=== PATIENT | female | born 1960 | race Caucasian/White ===

== ENCOUNTER 2017-02-20 08:18 | Outpatient (CLI) | payer OTHER ==
[2017-02-20 08:48] LABS: BILIRUBIN,URINE NEGATIVE (NEGATIVE)
[2017-02-20 08:49] LABS: UA CHARGE (STRIP ONLY) YES; UR CULTURE IF IND NOT INDICATED
[2017-02-20 09:17] LABS: BASOPHILS # (AUTO) 0.1 10^3/uL (0.0-0.1); BASOPHILS % (AUTO) 1.3 %; EOSINOPHILS # (AUTO) 0.4 10^3/uL (0.0-0.7); EOSINOPHILS % (AUTO) 4.3 %; HCT - HEMATOCRIT 43.5 % (37.0-47.0); HGB - HEMOGLOBIN 14.9 g/dL (12.0-16.0); LYMPHOCYTES # (AUTO) 2.9 10^3/uL (1.5-3.5); MEAN CORPUSCULAR HEMOGLOBIN 31.3 pg (27.0-31.0); MEAN CORPUSCULAR HGB CONC 34.3 g/dL (32.0-36.0); MEAN CORPUSCULAR VOLUME 91.4 fL (81.0-99.0); MEAN PLATELET VOLUME 8.5 fL (7.9-10.8); MONOCYTES # (AUTO) 0.7 10^3/uL (0.0-1.0); MONOCYTES % (AUTO) 7.8 %; NEUTROPHILS # (AUTO) 4.8 10^3/uL (1.5-6.6); NEUTROPHILS % (AUTO) 53.6 %; NUCLEATED RED BLOOD CELLS AUTO 0.1 /100WBC; RED BLOOD COUNT 4.76 10^6/uL (4.20-5.40); RED CELL DISTRIBUTION WIDTH 12.2 % (12.0-15.0); UNCORRECTED WHITE BLOOD COUNT 8.9 x10^3/uL; WHITE BLOOD COUNT 8.9 x10^3/uL (4.8-10.8)
[2017-02-20 09:31] LABS: HEMOGLOBIN A1C 0.63 g/dL
[2017-02-20 09:34] LABS: ALBUMIN/GLOBULIN RATIO 1.7 (1.0-2.2); BUN - BLOOD UREA NITROGEN 17 mg/dL (6-20); CALCIUM 9.7 mg/dL (8.5-10.3); CARBON DIOXIDE - CO2 25 mmol/L (21-32); CHLORIDE 102 mmol/L (101-111); CHOLESTEROL 255 mg/dL; CREATININE 0.8 mg/dL (0.4-1.0); GFR - MDRD 74 (>89); GLUCOSE 112 mg/dL (70-100); HDL CHOLESTEROL 51 mg/dL; LDL/HDL RATIO 3.1 (<4.4); POTASSIUM 3.7 mmol/L (3.5-5.0); SODIUM 140 mmol/L (135-145); TRIGLYCERIDES 231 mg/dL; VLDL CHOLESTEROL 46 mg/dL
[2017-02-20 09:38] LABS: PLATELET MORPHOLOGY NORMAL APPEARANCE (NORMAL)
== END 2017-02-20 08:19 | disposition home or self-care (01) ==
LOC: LAB 08:18
PROVIDERS: ATTEND Internal Medicine
DX: Z00.00 Encounter for general adult medical examination without abnormal findings (principal); I10 Essential (primary) hypertension; R74.8 Abnormal levels of other serum enzymes; M79.1 Myalgia; M25.50 Pain in unspecified joint; E11.9 Type 2 diabetes mellitus without complications; E78.5 Hyperlipidemia, unspecified; E03.9 Hypothyroidism, unspecified
CPT/HCPCS: 36415; 80053; 80061; 81001; 81003; 82043; 82570; 83036; 84443; 85025; 86200; 86430; 86803; 87086

== ENCOUNTER 2018-06-28 11:39 | Emergency (ER) | payer OTHER, BC ==
[2018-06-28 11:52] VITALS: BP 142/92
--- NOTE | 2018-06-28 12:41 | XRAY Report ---
Reason: left foot injury Procedure Date: 06/28/2018 Accession Number: [id number] / [id number] Procedure: XR - Foot 3 View LT CPT Code: FULL RESULT: EXAM: LEFT FOOT RADIOGRAPHY EXAM DATE: 06/28/2018 12:08 PM. CLINICAL HISTORY: Lateral fourth and fifth toe pain after getting foot caught in door 3 days ago. COMPARISON: None. TECHNIQUE: 3 views. FINDINGS: Bones: Normal. No fractures or bone lesions. Joints: Minor degenerative osteophyte of the first MTP joint. No subluxations. Soft Tissues: Mild soft tissue swelling noted adjacent to the fifth tarsometatarsal joint and fifth digit. IMPRESSION: Soft tissue swelling of the fifth digit but no appreciable fracture. RADIA
--- NOTE | 2018-06-28 12:54 | ED Physician Documentation ---
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 She presents now with persistent pain of her left little toe, and lateral aspect of her foot. The pain is worse with weightbearing. She denies history of similar symptoms in the past. Review of Systems Constitutional: denies: Fever Musculoskeletal: reports: Extremity pain (Left foot.) Neurologic: denies: Focal weakness, Numbness PD PAST MEDICAL HISTORY - Past Medical History Past Medical History: No - Present Medications Home Medications: Ambulatory Orders Medication Instructions Recorded Confirmed No Known Home Medications 06/28/18 06/28/18 - Allergies Allergies/Adverse Reactions: Allergies Allergy/AdvReac Type Severity Reaction Status Date / Time No Known Drug Allergies Allergy Verified 06/28/18 11:49 - Social History Does the pt smoke?: No Smoking Status: Never smoker PD ED PE NORMAL - Vitals Vital signs reviewed: Yes (Borderline hypertension initially.) - General General: Alert and oriented X 3, Well developed/nourished - HEENT HEENT: Atraumatic - Respiratory Respiratory: No respiratory distress - Derm Derm: No rash - Extremities Extremities: No edema, No calf tenderness / cord, Other (There is ecchymosis of the left little toe, with associated tenderness to palpation of the little toe and lateral aspect of the distal foot. There is associated soft tissue swelling. There is no tenderness to palpation at the medial aspect of the foot, or the ankle. Distal neurovascular is intact.) - Neuro Neuro: Alert and oriented X 3, No motor deficit, No sensory deficit Results - Vitals Vitals: Oxygen O2 Source Room air - Rads (name of study) left foot Radiology: Prelim report reviewed, EMP read contemporaneously, See rad report (Soft tissue swelling of the left little toe, with no appreciable fracture.) PD MEDICAL DECISION MAKING - ED course Complexity details: reviewed results, re-evaluated patient, considered differential, d/w patient, other (An L&I form was completed.) ED course: The patient's presentation is most consistent with contusion to the left foot. Radiographic imaging reveals no evidence of bony abnormality. I discussed with her the expected course of injury, symptomatic treatment and outpatient follow- up, as well as potentially worrisome signs or symptoms that should prompt reevaluation in the emergency department. An L&I form was completed. Departure - Departure Disposition: 01 Home, Self Care Clinical Impression: Contusion of foot including toes Qualifiers: Encounter type: initial encounter Laterality: left Qualified Code(s): S90.32XA - Contusion of left foot, initial encounter; S90.122A - Contusion of left lesser toe(s) without damage to nail, initial encounter Condition: Stable Instructions: ED Contusion Lower Ext Comments: Keep your left foot elevated as much the time as possible. You can use ibuprofen, up to 800 mg 3 times daily for its anti-inflammatory effect. Apply ice pack to your foot intermittently for the next 3 days. Let pain be your guide to activity level. Follow-up with your primary physician, or return to the emergency department if you develop markedly increasing swelling or pain, or otherwise worsening symptoms. Forms: Activity restrictions Discharge Date/Time: 06/28/18 13:03
== END 2018-06-28 13:03 | disposition home or self-care (01) ==
LOC: ED 11:39
DX: S90.32XA Contusion of left foot, initial encounter (principal); S90.122A Contusion of left lesser toe(s) without damage to nail, initial encounter; W23.0XXA Caught, crushed, jammed, or pinched between moving objects, initial encounter; Y92.239 Unspecified place in hospital as the place of occurrence of the external cause; Y99.0 Civilian activity done for income or pay
CPT/HCPCS: 99282; 99283

== ENCOUNTER 2018-11-06 08:00 | Outpatient (CLI) | payer OTHER ==
[2018-11-06 07:39] LABS: BASOPHILS # (AUTO) 0.1 10^3/uL (0.0-0.1); BASOPHILS % (AUTO) 0.8 %; EOSINOPHILS # (AUTO) 0.1 10^3/uL (0.0-0.7); EOSINOPHILS % (AUTO) 1.7 %; LYMPHOCYTES # (AUTO) 2.4 10^3/uL (1.5-3.5); LYMPHOCYTES % (AUTO) 30.2 %; MEAN CORPUSCULAR HEMOGLOBIN 30.4 pg (27.0-31.0); MEAN CORPUSCULAR HGB CONC 32.7 g/dL (32.0-36.0); MEAN CORPUSCULAR VOLUME 92.8 fL (81.0-99.0); MEAN PLATELET VOLUME 10.6 fL (7.9-10.8); MONOCYTES # (AUTO) 0.6 10^3/uL (0.0-1.0); MONOCYTES % (AUTO) 8.2 %; NEUTROPHILS # (AUTO) 4.6 10^3/uL (1.5-6.6); NEUTROPHILS % (AUTO) 58.8 %; PLT - PLATELET COUNT 202 10^3/uL (130-450); RED BLOOD COUNT 4.61 10^6/uL (4.20-5.40); RED CELL DISTRIBUTION WIDTH 12.4 % (12.0-15.0); WHITE BLOOD COUNT 7.8 x10^3/uL (4.8-10.8)
[2018-11-06 07:53] LABS: ALBUMIN 4.2 g/dL (3.2-5.5); ALBUMIN/GLOBULIN RATIO 1.4 (1.0-2.2); ALKALINE PHOSPHATASE 46 IU/L (42-121); ALT ALANINE AMINOTRANSFERASE 24 IU/L (10-60); AST ASPARTATE AMINOTRANSFERASE 21 IU/L (10-42); BILIRUBIN,TOTAL 0.8 mg/dL (0.2-1.0); BUN - BLOOD UREA NITROGEN 19 mg/dL (6-20); CALCIUM 9.4 mg/dL (8.5-10.3); CARBON DIOXIDE - CO2 23 mmol/L (21-32); CHLORIDE 106 mmol/L (101-111); CHOL/HDL RATIO 6.3 (<4.4); CHOLESTEROL 239 mg/dL; CREATININE 0.8 mg/dL (0.4-1.0); CRP - C-REACTIVE PROTEIN 1.2 mg/dL (0-1.0); GFR - MDRD 74 (>89); GLUCOSE 119 mg/dL (70-100); HDL CHOLESTEROL 38 mg/dL; SODIUM 140 mmol/L (135-145); TOTAL PROTEIN 7.1 g/dL (6.7-8.2)
[2018-11-06 07:55] LABS: HEMOGLOBIN A1C 0.68 g/dL; HEMOGLOBIN A1C % 6.3 % (4.6-6.2)
[2018-11-06 07:58] LABS: CREATININE,URINE 103.8 mg/dL; MICROALBUM/CREATININE RATIO,UR 6.7 ug/mg (<30.0); MICROALBUMIN,URINE 0.7 mg/dL (0-300.0)
[2018-11-06 08:12] LABS: LDL CHOLESTEROL,DIRECT 128 mg/dL; LDLD/HDL RATIO 3.4 (<4.4)
== END 2018-11-06 23:59 | disposition home or self-care (01) ==
LOC: LAB 08:00
PROVIDERS: ATTEND Nurse Practitioner
DX: Z13.29 Encounter for screening for other suspected endocrine disorder (principal); Z13.220 Encounter for screening for lipoid disorders; I10 Essential (primary) hypertension; E11.9 Type 2 diabetes mellitus without complications; M79.10 Myalgia, unspecified site
CPT/HCPCS: 36415; 80053; 80061; 82043; 82570; 83036; 83721; 84443; 85025; 85651; 86140

== ENCOUNTER 2018-12-23 15:31 | Outpatient (CLI) | payer BC ==
--- NOTE | 2018-12-27 09:09 | Mammography Report ---
Reason: SCREENING MAMMO Procedure Date: 12/23/2018 Accession Number: [id number] / [id number] Procedure: RACHELL - Screening Mammo w/Jaime CPT Code: FULL RESULT: EXAM: Screening Mammo w/Jaime DATE: 12/23/2018 3:50 PM CLINICAL HISTORY: Screening encounter. TECHNIQUE: (B) - Bilateral CC, laterally exaggerated CC, MLO views were obtained. COMPARISON: None PARENCHYMAL PATTERN: (A) - The breast(s) demonstrate(s) scattered fibroglandular densities. FINDINGS: In the immediately retroareolar region of the right breast 1 cm from the nipple, 12:00 position is a isodense well-circumscribed gently angulated 1.3 x 1.1 cm nodule, best seen on 3-D image 28 in the MLO projection and 3-D image 38 in the CC projection. There is no suspicious architectural distortion and there are no associated calcifications. This should be clarified with focused right breast ultrasound. There are coarse typically benign calcifications. There are no suspicious masses, calcifications, or areas of distortion in the left breast. IMPRESSION: Incomplete examination. BI-RADS category 0. RECOMMENDATION: (ADDUS) - Targeted ultrasound recommended. Right breast ultrasound. If prior mammograms demonstrating stability of this finding can be made available, the additional ultrasound examination is potentially obviated. BI-RADS CATEGORY: (0) - Incomplete Examination - need additional evaluation. STANDARD QUALIFYING STATEMENTS: 1. This examination was not reviewed with the aid of Computer-Aided Detection (CAD). 2. A negative or benign imaging report should not preclude biopsy if clinically suspicious findings are present. 3. Dense breasts may obscure an underlying neoplasm. 4. This examination was reviewed with the aid of 3D breast imaging (tomosynthesis).
== END 2018-12-23 15:32 | disposition home or self-care (01) ==
LOC: DI 15:31
DX: Z12.31 Encounter for screening mammogram for malignant neoplasm of breast (principal)
CPT/HCPCS: 77063; 77067

== ENCOUNTER 2019-01-01 13:17 | Outpatient (CLI) | payer BC ==
--- NOTE | 2019-01-01 16:14 | Ultrasound Report ---
Reason: ABNORMAL MAMMOGRAM Procedure Date: 01/01/2019 Accession Number: [id number] / [id number] Procedure: US - Breast Unilateral Limited CPT Code: FULL RESULT: EXAM: Breast Unilateral Limited DATE: 01/01/2019 2:05 PM CLINICAL HISTORY: ABNORMAL MAMMOGRAM COMPARISON: 12/23/2018. TECHNIQUE: Targeted ultrasound was performed of the right breast in the area of clinical concern at 12 o'clock and less than 1 cm distance from the nipple. Color Doppler was employed as appropriate. FINDINGS: A wider than tall 1.4 x 0.7 cm lobular shaped nodule which is relatively isoechoic to surrounding fat is identified, fat lobule versus benign-appearing lymph node. This corresponds to the mammographic finding. No suspicious findings are seen. IMPRESSION: Benign findings RECOMMENDATION: Recommend routine annual Screening mammography unless otherwise clinically indicated. BIRADS CATEGORY 2: Benign findings RADIA
== END 2019-01-01 13:18 | disposition home or self-care (01) ==
LOC: DI 13:17
PROVIDERS: ATTEND Nurse Practitioner
DX: R92.8 Other abnormal and inconclusive findings on diagnostic imaging of breast (principal)
CPT/HCPCS: 76642

== ENCOUNTER 2019-04-30 08:00 | Outpatient (CLI) | payer BC ==
[2019-04-30 05:47] LABS: BASOPHILS # (AUTO) 0.1 10^3/uL (0.0-0.1); BASOPHILS % (AUTO) 0.8 %; EOSINOPHILS # (AUTO) 0.2 10^3/uL (0.0-0.7); EOSINOPHILS % (AUTO) 2.7 %; HGB - HEMOGLOBIN 13.5 g/dL (12.0-16.0); LYMPHOCYTES # (AUTO) 2.2 10^3/uL (1.5-3.5); LYMPHOCYTES % (AUTO) 29.4 %; MEAN CORPUSCULAR HEMOGLOBIN 30.8 pg (27.0-31.0); MEAN CORPUSCULAR HGB CONC 33.4 g/dL (32.0-36.0); MEAN PLATELET VOLUME 10.3 fL (7.9-10.8); MONOCYTES # (AUTO) 0.6 10^3/uL (0.0-1.0); MONOCYTES % (AUTO) 8.1 %; NEUTROPHILS # (AUTO) 4.4 10^3/uL (1.5-6.6); NEUTROPHILS % (AUTO) 58.3 %; PLT - PLATELET COUNT 176 10^3/uL (130-450); RED BLOOD COUNT 4.39 10^6/uL (4.20-5.40); RED CELL DISTRIBUTION WIDTH 12.1 % (12.0-15.0); WHITE BLOOD COUNT 7.5 x10^3/uL (4.8-10.8)
[2019-04-30 06:07] LABS: ALBUMIN 4.2 g/dL (3.2-5.5); ALBUMIN/GLOBULIN RATIO 1.2 (1.0-2.2); BILIRUBIN,TOTAL 0.8 mg/dL (0.2-1.0); CALCIUM 9.8 mg/dL (8.5-10.3); CREATININE 0.8 mg/dL (0.4-1.0); TOTAL PROTEIN 7.6 g/dL (6.7-8.2)
[2019-04-30 06:35] LABS: THYROID STIMULATING HORMONE 2.32 uIU/mL (0.34-5.60)
[2019-04-30 06:36] LABS: FREE T4 (FREE THYROXINE) 0.94 ng/dL (0.58-1.64)
== END 2019-04-30 23:59 | disposition home or self-care (01) ==
LOC: LAB.R 08:00
PROVIDERS: ATTEND Nurse Practitioner
DX: K30 Functional dyspepsia (principal); E11.9 Type 2 diabetes mellitus without complications; R42 Dizziness and giddiness; I10 Essential (primary) hypertension
CPT/HCPCS: 80053; 84439; 84443; 84481; 85025

== ENCOUNTER 2019-05-05 12:00 | Outpatient (CLI) | payer BC ==
[2019-05-06 12:35] LABS: HEPATITIS B SURFACE ANTIGEN NON-REACTIVE (NON-REACTIVE); HEPATITIS C ANTIBODY NON-REACTIVE (NON-REACTIVE)
== END 2019-05-05 12:01 | disposition home or self-care (01) ==
LOC: LAB 12:00
PROVIDERS: ATTEND Family Medicine
DX: R74.0 Nonspecific elevation of levels of transaminase and lactic acid dehydrogenase [LDH] (principal)
CPT/HCPCS: 36415; 86317; 86704; 86709; 86803; 87340

== ENCOUNTER 2019-05-30 10:15 | Outpatient (CLI) | payer BC ==
[2019-05-30] MEDS ORDERED: BARIUM SULFATE 148 GM POWDER PO ONE (11:24)
[2019-05-30] MEDS ORDERED: BARIUM SULFATE 135 ML BOTTLE PO ONE (11:24)
--- NOTE | 2019-05-30 13:40 | XRAY Report ---
Reason: DYSPEPSIA DISORDERS OF FUNCTION OF STOMACH Procedure Date: 05/30/2019 Accession Number: [id number] / [id number] Procedure: FL - Esophogram CPT Code: Final Report FULL RESULT: EXAM: BARIUM ESOPHAGRAM EXAM DATE: 05/30/2019 10:34 AM. CLINICAL HISTORY: Dyspepsia. Reflux symptoms. COMPARISONS: None. TECHNIQUE: Routine double contrast esophagram. Fluoroscopy Time: 1 minute 53 seconds. Number of Images: 28. FINDINGS: Swallowing Mechanism: Normal. No tracheal aspiration or penetration. Esophageal Motility: Normal peristaltic stripping wave. Mucosa: No ulcerations or masses. Gastroesophageal Junction: No hiatal hernia or stricture. Minimal reflux elicited during this examination. IMPRESSION: Minimal reflux. No hiatal hernia. RADIA
== END 2019-05-30 10:16 | disposition home or self-care (01) ==
LOC: DI 10:15
PROVIDERS: ATTEND Family Medicine
DX: K30 Functional dyspepsia (principal); K21.9 Gastro-esophageal reflux disease without esophagitis
CPT/HCPCS: 74220

== ENCOUNTER 2019-06-19 12:15 | Outpatient (CLI) | payer BC ==
--- NOTE | 2019-06-20 01:10 | XRAY Report ---
Reason: BACK PAIN,MUSCLE SPASM,BACK Procedure Date: 06/19/2019 Accession Number: [id number] / [id number] Procedure: XR - Thoracic Spine 3 View CPT Code: Final Report FULL RESULT: EXAM: THORACIC SPINE RADIOGRAPHY EXAM DATE: 06/19/2019 12:39 PM. CLINICAL HISTORY: BACK PAIN, MUSCLE SPASM, BACK. COMPARISON: None. TECHNIQUE: 3 views. FINDINGS: Alignment: Normal. No spondylolisthesis or scoliosis. Bones: No fractures or bone lesions. Disks: Mild degenerative changes are seen involving the disk spaces from T8-T9 through L1-L2. Soft Tissues: Normal. The visualized lungs and cardiomediastinal silhouette are normal. IMPRESSION: 1. Mild degenerative changes involving the disk spaces of the lower thoracic spine. No fracture is suspected. RADIA
== END 2019-06-19 12:16 | disposition home or self-care (01) ==
LOC: DI 12:15
PROVIDERS: ATTEND Family Medicine
DX: M51.34 Other intervertebral disc degeneration, thoracic region (principal)
CPT/HCPCS: 72072

== ENCOUNTER 2019-07-17 12:19 | Outpatient (CLI) | payer BC ==
--- NOTE | 2019-07-18 10:05 | XRAY Report ---
Reason: SHOULDER PAIN, RIGHT, CERVICALGIA Procedure Date: 07/17/2019 Accession Number: [id number] / [id number] Procedure: XR - Cervical Spine Complete CPT Code: Final Report FULL RESULT: EXAM: CERVICAL SPINE RADIOGRAPHY EXAM DATE: 07/17/2019 12:40 PM. CLINICAL HISTORY: Shoulder pain, right, cervicalgia. COMPARISONS: THORACIC SPINE 3 VIEW 06/19/2019 12:31 PM. TECHNIQUE: 5 views. FINDINGS: Alignment: Normal. No spondylolisthesis or scoliosis. Bones: The cervical vertebral bodies and posterior elements are well-visualized from the skull base through C7-T1. No fractures or bone lesions. Degenerative changes: Moderate C6-C7 and C7-T1 disk height loss with osteophytosis. Mild C4-C5 and C5-C6 disk level degenerative changes. Multilevel mild bilateral facet and uncovertebral joint DJD. Mild bilateral C4-C5 and C5-C6 neural foraminal narrowing. Mild left-sided C6-C7 neural foraminal narrowing. Soft Tissues: Normal. No prevertebral soft tissue swelling. The visualized lung apices are clear. IMPRESSION: Moderate cervical degenerative changes without acute abnormality seen. RADIA
== END 2019-07-17 12:20 | disposition home or self-care (01) ==
LOC: DI 12:19
PROVIDERS: ATTEND Family Medicine
DX: M50.321 Other cervical disc degeneration at C4-C5 level (principal); M25.511 Pain in right shoulder
CPT/HCPCS: 72050

== ENCOUNTER 2021-05-27 08:00 | Outpatient (CLI) | payer BC | END 2021-05-27 23:59 | LOC: LAB.N 08:00 | PROVIDERS: ATTEND Physician Assistant Medical | DX: U07.1 COVID-19 (principal) ==